=== PATIENT | female | born 1945 | race Caucasian/White ===

== ENCOUNTER 2017-04-25 06:05 | Inpatient (IN) | payer MEDICARE, MEDICAID ==
[~2017-04-25] VITALS: Ht 167.6 cm; Wt 70.9 kg
[~2017-04-25 06:05] MED LIST: ALLO300T PO; ALPR-475 PO; ALPR0.5T6 PO; AMIO200T42 PO; AMOX1TAB64 PO; DIGO125T6 PO; DILT120C9 PO; DILT180C53 PO; DILT180C72 PO; DILT240C77 PO; DILT30TA33 PO; DILT90TA PO; DOXE10CA PO; ERGO500017 PO; FERR325T20 PO; FOLI-17 PO; FURO-93 PO; HYDR50TA13 PO; LEVO100T PO; LEVO75TA PO; LEVO88TA4 PO; LISI-167 PO; LISI40TA PO; LORA-446 PO; LURA20TA PO; METO-93 PO; METO25TA35 PO; METO25TA91 PO; METO50TA82 PO; MODA200T12 PO; MODA200T2 PO; MULT-750 PO; OMEP-110 PO; OXYC-74 PO; PANT40TA3 PO; PANT40TA5 PO; POLY17PO5 PO; POTA10TA5 PO; POTA20TA14 PO; RIVA20TA PO; SIMV10TA PO; THIA100T6 PO; ZOLP10TA5 PO; ZOLP12.52 PO
[2017-04-25] MEDS ORDERED: MORPHINE SULFATE 4 MG/ML, 1ML IVPush PRN ×2 (06:30→10:30)
[2017-04-25] MEDS ORDERED: SODIUM CHLORIDE FLUSH 10ML SYR IVF ONE (06:30)
[2017-04-25] MEDS ORDERED: SODIUM CHLORIDE 0.9% 1,000ML IVBOLUS ONE (06:30)
[2017-04-25 07:46] LABS: ASPARTATE AMINO TRANSFERASE 22 U/L (15-37); BLOOD UREA NITROGEN 15 mg/dL (7-18)
[2017-04-25 07:51] LABS: IS PT STATUS REG ER OR PRE ER? YES
[2017-04-25] MEDS ORDERED: MORPHINE SULFATE 4 MG/ML, 1ML ONE (08:11)
[2017-04-25 08:45] LABS: DIFF TOTAL CELLS COUNTED 100 CELL DIFF
[2017-04-25 09:30] VITALS: BP 126/83
[2017-04-25 09:38] LABS: VERIFY COUNTS? YES
[2017-04-25] MEDS ORDERED: SODIUM CHLORIDE 0.9% 1,000 ML IV SCH (10:24)
[2017-04-25] MEDS ORDERED: NITROGLYCERIN 0.4 MG BOTTLE (25 TABS) SL PRN (10:30)
[2017-04-25] MEDS ORDERED: ONDANSETRON 2MG/ML, 2ML IVPush PRN (10:30)
[2017-04-25] MEDS ORDERED: POLYETHYLENE GLYCOL 17 GM PACKET PO PRN (10:30)
[2017-04-25] MEDS ORDERED: DOCUSATE 100 MG CAPSULE PO PRN (10:30)
[2017-04-25] MEDS ORDERED: NITROGLYCERIN 0.4 MG/SPRAY SL PRN (10:30)
[2017-04-25] MEDS ORDERED: BISACODYL 10 MG SUPP PR PRN (10:30)
[2017-04-25] MEDS ORDERED: MAGNESIUM SULFATE PMX 2GM/50ML 50 ML IV ONE (11:00)
[2017-04-25] MEDS: RIVAROXABAN 20 MG TABLET PO SCH (11:13)
[2017-04-25] MEDS: THIAMINE 100MG TABLET PO SCH (12:32)
[2017-04-25] MEDS: METOPROLOL SUCCINATE 100 MG TAB.ER.24H PO SCH (12:33)
[2017-04-25] MEDS: FOLIC ACID 1 MG TABLET PO SCH (12:33)
[2017-04-25] MEDS: AMIODARONE 200 MG TABLET PO SCH (12:33)
[2017-04-25] MEDS: ALLOPURINOL 100 MG TABLET PO SCH (12:33)
[2017-04-25] MEDS: POTASSIUM CHLORIDE 10 MEQ TABLET.ER PO SCH (12:34)
[2017-04-25] MEDS: LEVOTHYROXINE 50 MCG TABLET PO SCH (12:34)
[2017-04-25] MEDS: FUROSEMIDE 20 MG TABLET PO SCH (12:34)
[2017-04-25] MEDS: OXYcodone/APAP 10/325MG TABLET PO PRN ×2 (12:43→21:59)
[2017-04-25 13:15] LABS: DAU SCREEN DISCLAIMER
[2017-04-25 14:58] VITALS: BP 120/77
[2017-04-25 17:22] LABS: IS PT STATUS REG ER OR PRE ER? NO
[2017-04-25 21:24] LABS: IS PT STATUS REG ER OR PRE ER? NO
[2017-04-25 21:51] VITALS: BP 113/69
[2017-04-26] VITALS (7 sets, daily range): BP systolic 91–115; BP diastolic 57–74
[2017-04-26] MEDS ORDERED: ZOLPIDEM 10MG TABLET PO ONE (01:30)
[2017-04-26] MEDS: OXYcodone/APAP 10/325MG TABLET PO PRN (03:52)
[2017-04-26] MEDS: LEVOTHYROXINE 50 MCG TABLET PO SCH (04:34)
[2017-04-26 05:40] LABS: ASPARTATE AMINO TRANSFERASE 19 U/L (15-37); BLOOD UREA NITROGEN 15 mg/dL (7-18)
[2017-04-26] MEDS ORDERED: LEVOTHYROXINE 100 MCG TABLET PO SCH (06:00)
[2017-04-26 06:17] LABS: DIFF TOTAL CELLS COUNTED 100 CELL DIFF
[2017-04-26 06:33] LABS: ANISOCYTOSIS 1+; VERIFY COUNTS? YES
[2017-04-26] MEDS ORDERED: REGADENOSON 0.4 MG/5 ML SYRINGE ONE (08:45)
[2017-04-26] MEDS ORDERED: AMIODARONE 200 MG TABLET PO SCH (09:00)
[2017-04-26] MEDS ORDERED: FUROSEMIDE 20 MG TABLET PO SCH (09:00)
[2017-04-26] MEDS ORDERED: METOPROLOL SUCCINATE 25 MG TAB.ER.24H PO SCH (09:00)
[2017-04-26] MEDS ORDERED: POTASSIUM CHLORIDE 10 MEQ TABLET.ER PO SCH (09:00)
[2017-04-26] MEDS ORDERED: THIAMINE 100MG TABLET PO SCH (09:00)
[2017-04-26] MEDS ORDERED: ALLOPURINOL 300 MG TABLET PO SCH (09:00)
[2017-04-26] MEDS ORDERED: FOLIC ACID 1 MG TABLET PO SCH (09:00)
[2017-04-26] MEDS: RIVAROXABAN 20 MG TABLET PO SCH (11:25)
[2017-04-26] MEDS: THIAMINE 100MG TABLET PO SCH (11:25)
[2017-04-26] MEDS: ALLOPURINOL 100 MG TABLET PO SCH (11:25)
[2017-04-26] MEDS: AMIODARONE 200 MG TABLET PO SCH (11:26)
[2017-04-26] MEDS: FOLIC ACID 1 MG TABLET PO SCH (11:26)
[2017-04-26] MEDS: FUROSEMIDE 20 MG TABLET PO SCH (12:30)
[2017-04-26] MEDS: POTASSIUM CHLORIDE 10 MEQ TABLET.ER PO SCH (12:30)
[2017-04-26] MEDS: METOPROLOL SUCCINATE 100 MG TAB.ER.24H PO SCH (12:31)
[2017-04-26] MEDS: MAGNESIUM OXIDE 400 MG TABLET PO SCH (17:48)
[2017-04-26] MEDS ORDERED: ZOLPIDEM 10MG TABLET PO PRN (21:30)
[2017-04-27 01:38] VITALS: BP 109/64
[2017-04-27] MEDS: OXYcodone/APAP 10/325MG TABLET PO PRN ×2 (03:37→15:27)
[2017-04-27 05:30] LABS: BLOOD UREA NITROGEN 16 mg/dL (7-18)
[2017-04-27] MEDS: LEVOTHYROXINE 50 MCG TABLET PO SCH (06:14)
[2017-04-27 07:01] LABS: DIFF TOTAL CELLS COUNTED 100 CELL DIFF; VERIFY COUNTS? YES
[2017-04-27 07:02] LABS: ANISOCYTOSIS 1+
[2017-04-27 08:18] VITALS: BP 119/76
[2017-04-27] MEDS: POTASSIUM CHLORIDE 10 MEQ TABLET.ER PO SCH (08:22)
[2017-04-27] MEDS: THIAMINE 100MG TABLET PO SCH (08:22)
[2017-04-27] MEDS: RIVAROXABAN 20 MG TABLET PO SCH (08:22)
[2017-04-27] MEDS: AMIODARONE 200 MG TABLET PO SCH (08:22)
[2017-04-27] MEDS: FOLIC ACID 1 MG TABLET PO SCH (08:22)
[2017-04-27] MEDS: MAGNESIUM OXIDE 400 MG TABLET PO SCH (08:22)
[2017-04-27] MEDS: FUROSEMIDE 20 MG TABLET PO SCH (08:22)
[2017-04-27] MEDS: ALLOPURINOL 100 MG TABLET PO SCH (08:23)
[2017-04-27] MEDS: METOPROLOL SUCCINATE 100 MG TAB.ER.24H PO SCH (09:00)
[2017-04-27 12:15] VITALS: BP 102/58
[2017-04-27] MEDS ORDERED: AMIO200T42 PO (16:55)
== END 2017-04-27 18:30 | disposition home or self-care (01) | DRG 280 ==
LOC: ED 06:13 → EDIP 08:22 → 5SO 09:23 → 4WST 04-26 21:47
PROVIDERS: ADMIT Internal Medicine; ATTEND Internal Medicine
DX: I48.2 Chronic atrial fibrillation (principal); R53.2 Functional quadriplegia; I21.4 Non-ST elevation (NSTEMI) myocardial infarction; E87.2 Acidosis; D68.69 Other thrombophilia; I50.32 Chronic diastolic (congestive) heart failure; I45.81 Long QT syndrome; E03.9 Hypothyroidism, unspecified; E78.5 Hyperlipidemia, unspecified; F10.229 Alcohol dependence with intoxication, unspecified; F32.9 Major depressive disorder, single episode, unspecified; G89.29 Other chronic pain; I07.1 Rheumatic tricuspid insufficiency; I11.0 Hypertensive heart disease with heart failure; I27.2 Other secondary pulmonary hypertension; I34.0 Nonrheumatic mitral (valve) insufficiency; I34.1 Nonrheumatic mitral (valve) prolapse; I35.1 Nonrheumatic aortic (valve) insufficiency; M54.2 Cervicalgia; K44.9 Diaphragmatic hernia without obstruction or gangrene; M10.9 Gout, unspecified; Z60.2 Problems related to living alone; E83.42 Hypomagnesemia; Z83.79 Family history of other diseases of the digestive system; Z91.19 Patient's noncompliance with other medical treatment and regimen; Z79.01 Long term (current) use of anticoagulants; Z90.710 Acquired absence of both cervix and uterus; Z88.6 Allergy status to analgesic agent; Z86.73 Personal history of transient ischemic attack (TIA), and cerebral infarction without residual deficits; Z91.5 Personal history of self-harm; R07.89 Other chest pain
CPT/HCPCS: 36415; 71010; 78452; 80048; 80053; 80061; 80307; 81003; 83605; 83735; 84100; 84443; 84484; 85025; 93005; 93017; 96361; 96374; J2405; J2785; A9502; C9898; J3475; J7030

== ENCOUNTER 2017-05-23 13:01 | Inpatient (IN) | payer MEDICARE, MEDICAID ==
[~2017-05-23] VITALS: Ht 167.6 cm; Wt 74.0 kg
[2017-05-23 13:55] LABS: HEMATOCRIT 36.6 % (34.6-47.8); WHITE BLOOD COUNT 3.9 x10^3/uL (3.4-10)
[2017-05-23 14:04] LABS: ASPARTATE AMINO TRANSFERASE 25 U/L (15-37); BLOOD UREA NITROGEN 13 mg/dL (7-18)
[2017-05-23 14:08] LABS: IS PT STATUS REG ER OR PRE ER? YES
[2017-05-23] MEDS ORDERED: CEFTRIAXONE PMX 1GM/50ML 50 ML IV ONE (15:30)
[2017-05-23] MEDS ORDERED: CEFTRIAXONE PMX 1GM/50ML 50 ML ONE (16:04)
[2017-05-23] MEDS ORDERED: TEMAZEPAM 15 MG CAPSULE PO PRN (17:00)
[2017-05-23] MEDS ORDERED: MORPHINE SULFATE 4 MG/ML, 1ML IVPush PRN (17:00)
[2017-05-23] MEDS ORDERED: hydrALAzine 20 MG/ML, 1ML IVPush PRN (17:00)
[2017-05-23] MEDS ORDERED: POLYETHYLENE GLYCOL 17 GM PACKET PO PRN (17:00)
[2017-05-23] MEDS ORDERED: ACETAMINOPHEN 325 MG TABLET PO PRN (17:00)
[2017-05-23 17:28] VITALS: BP 100/71
[2017-05-23 19:16] VITALS: BP 103/60
[2017-05-23] MEDS: ZOLPIDEM 10MG TABLET PO PRN (21:01)
[2017-05-23] MEDS: DOXYCYCLINE 100MG TABLET PO SCH (21:01)
[2017-05-24 01:21] VITALS: BP 100/67
[2017-05-24 01:55] LABS: DAU SCREEN DISCLAIMER
[2017-05-24 05:37] LABS: HEMATOCRIT 33.2 % (34.6-47.8); HEMOGLOBIN 10.9 g/dL (11.7-16.4); WHITE BLOOD COUNT 4.3 x10^3/uL (3.4-10)
[2017-05-24 05:42] LABS: ASPARTATE AMINO TRANSFERASE 26 U/L (15-37); BLOOD UREA NITROGEN 12 mg/dL (7-18)
[2017-05-24] MEDS: METOPROLOL SUCCINATE 25 MG TAB.ER.24H PO SCH (08:00)
[2017-05-24 09:00] VITALS: BP 90/59
[2017-05-24] MEDS ORDERED: METOPROLOL SUCCINATE 25 MG TAB.ER.24H PO SCH (09:00)
[2017-05-24] MEDS: RIVAROXABAN 20 MG TABLET PO SCH (09:14)
[2017-05-24] MEDS: FOLIC ACID 1 MG TABLET PO SCH (09:14)
[2017-05-24] MEDS: FUROSEMIDE 20 MG TABLET PO SCH (09:14)
[2017-05-24] MEDS: DOXYCYCLINE 100MG TABLET PO SCH ×2 (09:14→20:14)
[2017-05-24] MEDS: THIAMINE 100MG TABLET PO SCH (09:14)
[2017-05-24] MEDS: LEVOTHYROXINE 50 MCG TABLET PO SCH (09:14)
[2017-05-24] MEDS: AMIODARONE 200 MG TABLET PO SCH (09:14)
[2017-05-24] MEDS: POTASSIUM CHLORIDE 10 MEQ TABLET.ER PO SCH (09:14)
[2017-05-24] MEDS: ALLOPURINOL 100 MG TABLET PO SCH (09:15)
[2017-05-24 11:00] VITALS: BP 131/84
[2017-05-24 14:00] VITALS: BP 116/75
[2017-05-24] MEDS: CEFTRIAXONE PMX 1GM/50ML 50 ML IV SCH (16:57)
[2017-05-24 18:59] VITALS: BP 135/92
[2017-05-24] MEDS ORDERED: ALPRazolam 1MG TABLET ONE (20:05)
[2017-05-24] MEDS: ZOLPIDEM 10MG TABLET PO PRN (23:25)
[2017-05-25 02:41] VITALS: BP 117/73
[2017-05-25] MEDS: METOPROLOL SUCCINATE 25 MG TAB.ER.24H PO SCH (06:00)
[2017-05-25] MEDS: LEVOTHYROXINE 50 MCG TABLET PO SCH (06:31)
[2017-05-25 07:00] VITALS: BP 149/86
[2017-05-25] MEDS: THIAMINE 100MG TABLET PO SCH (08:22)
[2017-05-25] MEDS: AMIODARONE 200 MG TABLET PO SCH (08:22)
[2017-05-25] MEDS: FOLIC ACID 1 MG TABLET PO SCH (08:23)
[2017-05-25] MEDS: POTASSIUM CHLORIDE 10 MEQ TABLET.ER PO SCH (08:23)
[2017-05-25] MEDS: RIVAROXABAN 20 MG TABLET PO SCH (08:23)
[2017-05-25] MEDS: DOXYCYCLINE 100MG TABLET PO SCH ×2 (08:23→21:15)
[2017-05-25] MEDS: FUROSEMIDE 20 MG TABLET PO SCH (08:23)
[2017-05-25] MEDS: ALLOPURINOL 100 MG TABLET PO SCH (08:27)
[2017-05-25 12:27] VITALS: BP 129/79
[2017-05-25] MEDS ORDERED: ACETAMINOPHEN 325 MG TABLET PO PRN ×2 (13:00→19:00)
[2017-05-25] MEDS: CEFTRIAXONE PMX 1GM/50ML 50 ML IV SCH (16:28)
[2017-05-25] MEDS: ONDANSETRON 2MG/ML, 2ML IVPush PRN (17:49)
[2017-05-25] MEDS ORDERED: hydrALAzine 20 MG/ML, 1ML IVPush PRN (19:00)
[2017-05-25 20:30] VITALS: BP 130/90
[2017-05-25] MEDS ORDERED: ALPRazolam 1MG TABLET ONE (21:00)
[2017-05-26] MEDS ORDERED: ZOLPIDEM 10MG TABLET ONE (00:15)
[2017-05-26] MEDS: ZOLPIDEM 10MG TABLET PO PRN (00:22)
[2017-05-26 02:30] VITALS: BP 118/73
[2017-05-26] MEDS: METOPROLOL SUCCINATE 25 MG TAB.ER.24H PO SCH (05:47)
[2017-05-26] MEDS: LEVOTHYROXINE 50 MCG TABLET PO SCH (05:47)
[2017-05-26 07:14] VITALS: BP_SYST 156; BP_SYST 161; BP_DIAS 90; BP_DIAS 92
[2017-05-26] MEDS: AMIODARONE 200 MG TABLET PO SCH (08:41)
[2017-05-26] MEDS: POTASSIUM CHLORIDE 10 MEQ TABLET.ER PO SCH (08:41)
[2017-05-26] MEDS: FOLIC ACID 1 MG TABLET PO SCH (08:41)
[2017-05-26] MEDS: RIVAROXABAN 20 MG TABLET PO SCH (08:42)
[2017-05-26] MEDS: DOXYCYCLINE 100MG TABLET PO SCH (08:42)
[2017-05-26] MEDS: THIAMINE 100MG TABLET PO SCH (08:42)
[2017-05-26] MEDS: ALLOPURINOL 100 MG TABLET PO SCH (08:42)
[2017-05-26] MEDS: FUROSEMIDE 20 MG TABLET PO SCH (08:42)
[2017-05-26] MEDS: ONDANSETRON 2MG/ML, 2ML IVPush PRN (09:24)
[2017-05-26 15:22] VITALS: BP 127/79
[2017-05-26] MEDS ORDERED: TRAM50TA2 PO (15:44)
[2017-05-26] MEDS ORDERED: METO25TA91 PO (15:44)
[2017-05-26] MEDS ORDERED: CEFD300C37 PO (15:44)
[2017-05-26] MEDS ORDERED: DOXY100C15 PO (15:44)
[2017-05-26] MEDS: CEFTRIAXONE PMX 1GM/50ML 50 ML IV SCH (15:45)
[2017-05-26] MEDS ORDERED: SIMV20TA PO (15:54)
[2017-05-26] MEDS ORDERED: ALPR-475 PO (16:00)
== END 2017-05-26 16:00 | disposition home or self-care (01) | DRG 291 ==
LOC: ED 13:47 → EDIP 15:47 → 5SO 17:08 → 4EST 05-24 10:46
PROVIDERS: ADMIT Internal Medicine; ATTEND Internal Medicine
DX: I11.0 Hypertensive heart disease with heart failure (principal); J18.9 Pneumonia, unspecified organism; D68.69 Other thrombophilia; I34.0 Nonrheumatic mitral (valve) insufficiency; I48.2 Chronic atrial fibrillation; M06.9 Rheumatoid arthritis, unspecified; I50.32 Chronic diastolic (congestive) heart failure; E03.9 Hypothyroidism, unspecified; E78.5 Hyperlipidemia, unspecified; F10.20 Alcohol dependence, uncomplicated; F32.9 Major depressive disorder, single episode, unspecified; G89.29 Other chronic pain; M10.9 Gout, unspecified; Z76.5 Malingerer [conscious simulation]; Z79.01 Long term (current) use of anticoagulants; Z79.899 Other long term (current) drug therapy; Z86.73 Personal history of transient ischemic attack (TIA), and cerebral infarction without residual deficits; Z91.14 Patient's other noncompliance with medication regimen; Z88.6 Allergy status to analgesic agent
CPT/HCPCS: 36415; 71010; 80053; 80307; 83735; 83880; 84100; 84443; 84484; 85025; 85610; 87040; 93005; J0696; J2405

== ENCOUNTER 2017-06-26 14:58 | Emergency (ER) | payer MEDICARE, MEDICAID ==
[~2017-06-26] VITALS: Ht 172.7 cm; Wt 70.0 kg
[~2017-06-26 14:58] MED LIST changes: +CEFD300C37 PO; +DOXY100C15 PO; +FERR325T18 PO; -FERR325T20 PO; -MODA200T12 PO; +MODA200T27 PO; +OXYC-296 PO; -OXYC-74 PO; +SIMV20TA PO; +TRAM50TA2 PO
[2017-06-26] MEDS ORDERED: FLUORESCEIN OPHTHALMIC 1 MG STRIP ONE (15:10)
[2017-06-26 16:29] VITALS: BP 140/78
== END 2017-06-26 16:31 | disposition home or self-care (01) ==
LOC: ED 16:02
DX: T15.91XA Foreign body on external eye, part unspecified, right eye, initial encounter (principal)
CPT/HCPCS: 99283